=== PATIENT | male | born 2000 | race Caucasian/White ===

== ENCOUNTER → 2020-09-01 | Outpatient (CLI) | payer OTHER ==
[~2020-09-01] MED LIST: AMOXIL250 MG/5 M PO; LIDEX0.05% T; MOTRIN400 MG PO; NAPROSYN500 MG PO; SINGULAIR10 M1 PO; SINGULAIR5 MG PO
== END | disposition home or self-care (01) ==
LOC: COVID19 11:27
PROVIDERS: ATTEND Internal Medicine
DX: Z20.828 Contact with and (suspected) exposure to other viral communicable diseases (principal)

== ENCOUNTER → 2021-10-01 | Outpatient (CLI) | payer OTHER | END | disposition home or self-care (01) | LOC: COVID19 15:12 | PROVIDERS: ATTEND Student in an Organized Health Care Education/Training Program | DX: Z11.52 Encounter for screening for COVID-19 (principal) ==